=== PATIENT | female | born 1960 | race Caucasian/White ===

== ENCOUNTER 2020-07-15 06:48 | Outpatient (NON) | payer OTHER, SELFPAY ==
[2020-07-15 18:39] LABS: SARS-CoV-2 RNA PCR Negative
== END 2020-07-15 06:49 ==
PROVIDERS: PCP Family Medicine; Visit Provider Family Medicine
DX: Z20.828 Contact with and (suspected) exposure to other viral communicable diseases (principal); J06.9 Acute upper respiratory infection, unspecified; R68.89 Other general symptoms and signs
CPT/HCPCS: 87635; C9803; U0003

== ENCOUNTER 2022-12-22 09:04 | Emergency (ER) | payer BC, SELFPAY ==
[2022-12-22 09:14] VITALS: BP 159/80; PULSE 89; RESP 14; TEMP 36.8; O2SAT 98
--- NOTE | 2022-12-22 09:22 | ED.URI ---
HPI - URI/Sore Throat General Chief Complaint: Upper Respiratory Infection Stated Complaint: Facr/Throat/Ears Time Seen by Provider: 12/22/22 09:24 Source: patient, RN notes reviewed and old records reviewed Mode of arrival: ambulatory Limitations: no limitations History of Present Illness HPI Narrative: 62-year-old female presents to the [facility] with complaints of sinus congestion, bilateral ear pain and postnasal drip that started yesterday. Had taken Robitussin. Has felt feverish but did not measure her temperature. Onset (ago): day(s) (1) Related Data Allergies Allergy/AdvReac Type Severity Reaction Status Date / Time azithromycin Allergy Intermediate Unknown Verified 11/23/22 15:20 cefuroxime Allergy Intermediate Unknown Verified 11/23/22 15:20 doxycycline Allergy Intermediate Unknown Verified 11/23/22 15:20 cefixime Allergy Unknown Unknown Verified 11/23/22 15:20 erythromycin base Allergy Unknown Unknown Verified 11/23/22 15:20 levofloxacin Allergy Unknown Unknown Verified 11/23/22 15:20 sulfamethizole Allergy Unknown Unknown Verified 11/23/22 15:20 trimethoprim Allergy Unknown Unknown Verified 11/23/22 15:20 acetaminophen Allergy NAUSEATED/V Verified 11/23/22 15:20 OMITING Sulfa (Sulfonamide Allergy Unknown Verified 11/23/22 15:20 Antibiotics) sulfamethoxazole Allergy ITCHING Verified 11/23/22 15:20 tetracycline Allergy ITCHY Verified 11/23/22 15:20 clavulanic acid AdvReac Intermediate Itching Verified 11/23/22 15:20 1.SULFA 2.DARVOCET Allergy Unknown Unknown Uncoded 11/23/22 15:20 NKFA Allergy Unknown Unknown Uncoded 11/23/22 15:20 HYDROCODONE BIT Allergy NAUSEATED/V Uncoded 11/23/22 15:20 OMITING PROPOXYPHENE NAPSYLATE Allergy Unknown Uncoded 11/23/22 15:20 Review of Systems Review of Systems: All systems reviewed & are unremarkable except as noted in HPI and below Constitutional: Constitutional: Reports no additional constitutional complaints Eyes: Eyes: Reports no additional eye complaints ENT: Reports as per HPI, Reports otalgia (Bilateral), Reports nasal congestion, Reports nasal discharge and Reports sinus pressure Cardiovascular: Cardiovascular: Reports no additional cardiovascular complaints, Denies chest pain and Denies dyspnea Respiratory: Respiratory: Reports as per HPI, Denies chest congestion, Reports cough and Denies dyspnea Gastrointestinal: Gastrointestinal: Reports no additional gastrointestinal complaints, Denies abdominal pain, Denies nausea and Denies vomiting Musculoskeletal: Musculoskeletal: Reports no additional musculoskeletal complaints Integumentary/Breasts: Skin/Breast: Reports system reviewed and no additional complaints, except as docu Neurologic: Reports system reviewed and no additional complaints, except as documented Psychiatric: Psychiatric: Reports no additional psychiatric complaints Allergic/Immunologic: Allergic/Immunologic: Reports no additional allergic/immunologic complaints FOR[facility]LY [facility] Past Medical History Medical History BMI 34.0-34.9,adult BMI 35.0-35.9,adult Mixed hyperlipidemia Numbness and tingling of both upper extremities Family History Family History Mother Hypertension Family history of diabetes mellitus in first degree relative Sibling Family history of malignant neoplasm of breast in first degree relative Breast cancer Father Family history of malignant neoplasm of urinary bladder Sibling Acute myocardial infarction Social History Social History Smoking status: Current some day smoker (not considering quit) Tobacco type: cigarettes Second hand tobacco smoke exposure: No Alcohol intake: never Substance use: never Substance use type: does not use Lack of Transportation: No Lack of Food: Never True
== END 2022-12-22 09:43 | disposition home or self-care (01) ==
PROVIDERS: Emergency Provider Nurse Practitioner; PCP Family Medicine
DX: J06.9 Acute upper respiratory infection, unspecified (principal); R09.82 Postnasal drip; H65.03 Acute serous otitis media, bilateral; E78.2 Mixed hyperlipidemia; F17.210 Nicotine dependence, cigarettes, uncomplicated
CPT/HCPCS: 99211; G0463

== ENCOUNTER 2023-01-26 14:37 | Outpatient (CLI) | payer BC, SELFPAY ==
--- NOTE | ~2023-01-26 | MM_ITS ---
EXAMINATION: MM screening nubia BI w martha HISTORY: Screening mammogram TECHNIQUE: Craniocaudal and mediolateral oblique 3-D tomosynthesis images were obtained and synthetic 2-D images were generated. CAD analysis was submitted and interpreted. COMPARISON: 10/2010 bilateral screening mammogram BREAST PARENCHYMAL COMPOSITION: There are scattered areas of fibroglandular density. FINDINGS: Left breast: There is an approximately 5 x 7.8 mm circumscribed opacity with halo sign in the very po sterior upper outer quadrant not far from mid sagittal plane. This has a couple of superficial benign -appearing calcifications. The mammographic features suggest benign process, very possibly a benign f ibroadenoma. There is some asymmetric density in the posterior mid to upper outer left breast which was present on 10/05/2010. However there are some microcalcifications in this area that were not present on 10/05/2010. There appe ars to be some fat density associated with these calcifications suggesting these may be calcification s of fat necrosis, but left diagnostic mammography with magnification views would be helpful for more definitive evaluation, with ultrasound if required. Right breast: No suspicious mass, architectural distortion, malignant calcification, skin thickening or retraction of the right breast is detected. Occasional benign calcifications. IMPRESSION: 1. New indeterminate microcalcifications in the posterior mid upper outer left breast 2. Diagnostic left mammogram with magnification views is recommended, with ultrasound if required BI-RADS Category 0: Incomplete: Needs additional imaging evaluation. Reviewed, dictated and finalized at location A. IMPRESSION: 1. New indeterminate microcalcifications in the posterior mid upper outer left breast 2. Diagnostic left mammogram with magnification views is recommended, with ultr asound if required BI-RADS Category 0: Incomplete: Needs additional imaging evaluation.
== END 2023-01-26 14:38 | disposition home or self-care (01) ==
LOC: ANHIMG 14:39
PROVIDERS: PCP Family Medicine; Visit Provider Nurse Practitioner Family
DX: Z12.31 Encounter for screening mammogram for malignant neoplasm of breast (principal); R92.0 Mammographic microcalcification found on diagnostic imaging of breast
CPT/HCPCS: 77063; 77067

== ENCOUNTER 2023-02-22 11:16 | Outpatient (CLI) | payer BC, SELFPAY ==
--- NOTE | ~2023-02-22 | MMUS_ITS ---
EXAMINATION: MM diagnostic mammo unilat LT, US breast LT limited HISTORY: Left breast calcifications on screening mammogram TECHNIQUE: Additional views of the left breast were performed. CAD analysis was submitted and interpr eted. High resolution limited left breast ultrasound was performed. COMPARISON: 01/26/2023, 10/05/2010 FINDINGS: MAMMOGRAPHIC FINDINGS: There are grouped, coarse heterogeneous calcifications in the posterior third of the outer breast at the 3:00 location 8 cm from the nipple. There is an 8 mm oval, circumscribed, equal density mass in t he posterior third of the upper breast at the 12:00 location 7.5 cm from the nipple. ULTRASOUND: There is a 7 mm cyst at the 1:00 location, 1 cm from the nipple corresponding to the mammographic mas s. IMPRESSION: 1. Indeterminate left breast calcifications. 2. Stereotactic left breast biopsy is recommended. BI-RADS category 4, suspicious findings. Reviewed, dictated and finalized at location A. IMPRESSION: 1. Indeterminate left breast calcifications. 2. Stereotactic left breast biopsy is recommended. BI-RADS category 4, suspicious findings.
== END 2023-02-22 11:17 | disposition home or self-care (01) ==
LOC: ANHIMG 11:16
PROVIDERS: PCP Family Medicine; Visit Provider Nurse Practitioner Family
DX: R92.8 Other abnormal and inconclusive findings on diagnostic imaging of breast (principal)
CPT/HCPCS: 76642; 77065

== ENCOUNTER 2024-08-02 08:02 | Outpatient (CLI) | payer BC, SELFPAY ==
--- NOTE | ~2024-08-02 | XR_ITS ---
EXAMINATION: XR abdomen/kub 1V DATE: 08/02/2024 08:26 INDICATION: Other microscopic hematuria. TECHNIQUE: A supine view of the abdomen on 2 radiographs was obtained. COMPARISON: CT abdomen and pelvis 08/02/2024 FINDINGS: There are no dilated loops of bowel. Surgical clips in the right upper quadrant are likely from cholecystectomy. There are phleboliths in the pelvis. IMPRESSION: 1. No urolithiasis. Reviewed, dictated and finalized at location B. IMPRESSION: 1. No urolithiasis.
--- NOTE | ~2024-08-02 | CT_ITS ---
EXAMINATION: CT abdomen pelvis wo/w con DATE: 08/02/2024 08:46 INDICATION: Microscopic hematuria TECHNIQUE: Computed tomography (CT) of the abdomen and pelvis was performed without intravenous contr ast. CT of the abdomen and pelvis was then performed with a total of 130 mL Omnipaque-350 intravenous contrast using a double-bolus technique for simultaneous opacification of the renal parenchyma and r enal collecting system. Automated exposure control and iterative reconstruction technique were employ ed. The dose-length product was 2295.79 mGy-cm. COMPARISON: None FINDINGS: Calcified left lower lobe nodule, calcified left hilar lymph nodes and couple small splenic calcifica tions, all consistent with old granulomatous disease. Heart size is normal. No pericardial or pleural effusion. Moderate-sized sliding-type hiatal hernia. Cholecystectomy clips the gallbladder fossa. Li galdino, pancreas and bilateral adrenal glands are normal. Low-attenuation nonenhancing renal cysts measu ring 1.5 cm the right kidney and 5 mm at the left kidney. There are small regions of cortical scarrin g at the right kidney likely sequela prior infection or infarction. There is calcified atherosclerosi s of the aorta and many of the other arteries with suggestion of potentially minimally significant st enosis at the origin of the right renal artery. No urolithiasis. The mid to distal right and distal l eft ureters are decompressed with nearly indiscernible contrast. No hydronephrosis. No urothelial irr egularities identified at the bilateral renal collecting systems or more clearly contrast opacified p ortions of the ureters. Bladder is normal. No bowel obstruction. There are few scattered diverticula predominantly along the sigmoid colon without adjacent from trace stranding to suggest diverticulitis . No free intraperitoneal gas or fluid. No pathologically enlarged abdominal or pelvic lymphadenopath y. Moderate to severe lumbar spondylosis. IMPRESSION: 1. No urolithiasis, suspicious renal masses or urothelial irregularities to suggest etiology for repo rted microscopic hematuria. 2. Scattered cortical scarring at the right kidney which could represent sequela of prior infection o r infarction. There does appear to be potentially minimally significant stenosis at the origin of the right renal artery. 3. Moderate-sized sliding-type hiatal hernia. Reviewed, dictated and finalized at location A. IMPRESSION: 1. No urolithiasis, suspicious renal masses or urothelial irregularities to sug gest etiology for reported microscopic hematuria. 2. Scattered cortical scarring at the right kidney which could represent sequel a of prior infection or infarction. There does appear to be potentially minimal ly significant stenosis at the origin of the right renal artery. 3. Moderate-sized sliding-type hiatal hernia.
[2024-08-02 08:25] LABS: Estimated Glomerular Filt Rate 50
== END 2024-08-02 08:03 | disposition home or self-care (01) ==
PROVIDERS: PCP Family Medicine; Visit Provider Family Medicine
DX: R31.29 Other microscopic hematuria (principal); Z80.52 Family history of malignant neoplasm of bladder; K44.9 Diaphragmatic hernia without obstruction or gangrene
CPT/HCPCS: 74018; 74178; Q9967

== ENCOUNTER 2024-10-25 01:50 | Day surgery (SDC) | payer BC, SELFPAY ==
[2024-10-14 13:43] VITALS: BMI 37.5
[2024-10-25 06:22] VITALS: BP 127/72; PULSE 80; RESP 20; TEMP 36.1; O2SAT 98
[2024-10-25] MEDS: LACTATED RINGERS 1,000 ML 150 ML IV CONT (06:33)
--- NOTE | 2024-10-25 06:53 | WPDANESEPPF ---
Anes - Initial Pre Proc Eval Procedure: Operation Date: 10/25/24 07:30 Proposed Procedures p Screening Colonoscopy - Ralph Gonzalez MD Date/Time: 10/25/24 06:53 Surgeon: Ralph Gonzalez MD Pre Op Diagnosis: screening colon Patient Data Age: 64 Gender: F Height: 1.55 m Weight: 85.2 kg Last Vital Signs Temp 85.2 F L 10/25/24 06:22 Pulse 80 10/25/24 06:22 Resp 20 10/25/24 06:22 BP 127/72 10/25/24 06:22 Pulse Ox 98 10/25/24 06:22 O2 Del Method Room Air 10/25/24 06:22 Allergies Allergy/AdvReac Type Severity Reaction Status Date / Time azithromycin Allergy Intermediate Unknown Verified 10/25/24 06:20 cefuroxime Allergy Intermediate Unknown Verified 10/25/24 06:20 doxycycline Allergy Intermediate Unknown Verified 10/25/24 06:20 propoxyphene Allergy Mild Unknown Verified 10/25/24 06:20 cefixime Allergy Unknown Unknown Verified 10/25/24 06:20 erythromycin base Allergy Unknown Unknown Verified 10/25/24 06:20 levofloxacin Allergy Unknown Unknown Verified 10/25/24 06:20 trimethoprim Allergy Unknown Unknown Verified 10/25/24 06:20 Sulfa (Sulfonamide Allergy Unknown Verified 10/25/24 06:20 Antibiotics) tetracycline Allergy ITCHY Verified 10/25/24 06:20 clavulanic acid AdvReac Intermediate Itching Verified 10/25/24 06:20 hydrocodone (From Lorcet AdvReac Mild Nausea and Verified 10/25/24 06:20 (hydrocodone)) Vomiting Home Medications ?Medication ?Instructions ?Recorded ?Confirmed ?Type triamcinolone acetonide 0.1 % 1 applic topical BID #30 grams 06/17/24 10/14/24 Rx topical ointment semaglutide (weight loss) 0.25 0.25 mg (0.5 mL) subcut WEEKLY #2 08/20/24 10/14/24 Rx mg/0.5 mL subcutaneous pen mL injector (Wegovy) cyclobenzaprine 5 mg tablet 5 mg PO Q12H PRN muscle pain 10/14/24 10/14/24 History Patient hx anesthesia problems: none Family hx anesthesia problems: none Results Review: All pre-operative results and documents have been reviewed as part of the pre-operative evaluation. REPLACED BY [facility] Past Medical History Medical History Pre-diabetes Pelvic pain Urinary urgency Hemorrhoids Flank pain Family history of bladder cancer Microhematuria Screening for colon cancer Skin tag Screening for thyroid disorder Encounter for wellness examination Obesity (BMI 30.0-34.9) BMI 36.0-36.9,adult BMI 35.0-35.9,adult Boil BMI 34.0-34.9,adult Mixed hyperlipidemia Numbness and tingling of both upper extremities Family History Family History Mother Hypertension Family history of diabetes mellitus in first degree relative Sibling Family history of malignant neoplasm of breast in first degree relative Breast cancer Father Family history of malignant neoplasm of urinary bladder Sibling Acute myocardial infarction Social History Social History Smoking packs per day: 0.5 Smoking cigarettes per day: 10.0 Years smoked: 50 Smoking pack-years: 25.00 Smoking status: Current every day smoker Tobacco type: cigarettes Second hand tobacco smoke exposure: No Alcohol intake: never Substance use: never Substance use type: does not use Do You Feel Safe in your Home?: Yes Lack of Transportation: No Lack of Food: Never True Current Housing: I Have Housing Concerned About Future Housing: No Difficulty Paying Gas/Electric Bills: No Difficulty Paying for Meds: No Currently Unemployed: No Education: High School Diploma/GED Difficulty w/ Childcare or Family Care: No Living arrangements: alone 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 ) Neurological: alert and oriented Last oral intake: >/= 8 hours ASA classification: III Emergent: no Anesthetic plan: proceed Anesthesia type and monitoring: general GIVS and standard monitoring Results Review: All pre-operative results and documents have been reviewed as part of the pre-operative evaluation. Smoker, 1 ppd, obesity, borderline DM/hyperlipidemia, no meds. Informed Consent: The patient's anesthetic plan and its attendant risks and benefits were discussed with the patient/family/POA. Questions were solicited and answers provided to the satisfaction of the patient/family/POA.
--- NOTE | 2024-10-25 07:18 | PM.IMHP ---
H&P: HPI History of Present Illness Date/Time: 10/25/24 07:18 Chief Complaint: Screening colonoscopy Narrative: This is the patient's first colonoscopy. There are no GI symptoms and there is no family history of colorectal cancer. Review of Systems Review of Systems: All systems reviewed & are unremarkable except as noted in HPI and below PMFSH Past Medical History Medical History Pre-diabetes Pelvic pain Urinary urgency Hemorrhoids Flank pain Family history of bladder cancer Microhematuria Screening for colon cancer Skin tag Screening for thyroid disorder Encounter for wellness examination Obesity (BMI 30.0-34.9) BMI 36.0-36.9,adult BMI 35.0-35.9,adult Boil BMI 34.0-34.9,adult Mixed hyperlipidemia Numbness and tingling of both upper extremities Family History Family History Mother Hypertension Family history of diabetes mellitus in first degree relative Sibling Family history of malignant neoplasm of breast in first degree relative Breast cancer Father Family history of malignant neoplasm of urinary bladder Sibling Acute myocardial infarction Social History Social History Smoking packs per day: 0.5 Smoking cigarettes per day: 10.0 Years smoked: 50 Smoking pack-years: 25.00 Smoking status: Current every day smoker Tobacco type: cigarettes Second hand tobacco smoke exposure: No Alcohol intake: never Substance use: never Substance use type: does not use Do You Feel Safe in your Home?: Yes Lack of Transportation: No Lack of Food: Never True Current Housing: I Have Housing Concerned About Future Housing: No Difficulty Paying Gas/Electric Bills: No Difficulty Paying for Meds: No Currently Unemployed: No Education: High School Diploma/GED Difficulty w/ Childcare or Family Care: No Living arrangements: alone 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 Gender identity (if verbalized by the patient): Female Spiritual care concerns: No Meds Home Medications and Allergies Home Medications ?Medication ?Instructions ?Recorded ?Confirmed ?Type triamcinolone acetonide 0.1 % 1 applic topical BID #30 grams 09/16/24 01/13/25 Rx topical ointment semaglutide (weight loss) 0.25 0.25 mg (0.5 mL) subcut WEEKLY #2 08/20/24 10/14/24 Rx mg/0.5 mL subcutaneous pen mL injector (Joselo) cyclobenzaprine 5 mg tablet 5 mg PO Q12H PRN muscle pain 10/14/24 10/14/24 History Allergies Allergy/AdvReac Type Severity Reaction Status Date / Time azithromycin Allergy Intermediate Unknown Verified 10/25/24 06:20 cefuroxime Allergy Intermediate Unknown Verified 10/25/24 06:20 doxycycline Allergy Intermediate Unknown Verified 10/25/24 06:20 propoxyphene Allergy Mild Unknown Verified 10/25/24 06:20 cefixime Allergy Unknown Unknown Verified 10/25/24 06:20 erythromycin base Allergy Unknown Unknown Verified 10/25/24 06:20 levofloxacin Allergy Unknown Unknown Verified 10/25/24 06:20 trimethoprim Allergy Unknown Unknown Verified 10/25/24 06:20 Sulfa (Sulfonamide Allergy Unknown Verified 10/25/24 06:20 Antibiotics) tetracycline Allergy ITCHY Verified 10/25/24 06:20 clavulanic acid AdvReac Intermediate Itching Verified 10/25/24 06:20 hydrocodone (From Lorcet AdvReac Mild Nausea and Verified 10/25/24 06:20 (hydrocodone)) Vomiting Vital Signs Vital Signs - 24 hr 10/25/24 06:22 Temperature 85.2 F L Pulse Rate 80 Respiratory Rate 20 Blood Pressure 127/72 Pulse Oximetry 98 Oxygen Delivery Room Air Exam Const: General: cooperative and healthy appearing Resp: Effort & Inspection: normal respiratory effort and able to speak in complete sentences Auscultation: clear to auscultation bilaterally Cardio: Rate: regular rate Rhythm: regular rhythm GI: Inspection: normal to inspection GI Palp: No No hepatosplenomegaly present Auscultation: normal bowel sounds Rectal Exam: deferred Skin: General skin exam: normal color Psych: Appearance: grossly normal Mental Status: mental status grossly normal Assessment and Plan Assessment and plan (1) Screening for colon cancer: Code(s): Z12.11 - Encounter for screening for malignant neoplasm of colon Status: Acute Assessment and Plan: The patient is deemed a good candidate for the procedure. Consent signed. Will proceed.
--- NOTE | 2024-10-25 07:40 | SUR.OPER ---
At 0738, Dr. Gonzalez switched from a colonoscopy scope to a EGD scope due to difficulty advancing scope.
[2024-10-25 07:52] VITALS: BP 108/67; PULSE 73; RESP 18; O2SAT 98
[2024-10-25 08:02] VITALS: BP 128/70; PULSE 65; RESP 18; O2SAT 100
[2024-10-25 08:12] VITALS: BP 128/72; PULSE 60; RESP 22; O2SAT 100
== END 2024-10-25 08:20 | disposition home or self-care (01) ==
PROVIDERS: PCP Family Medicine; Referring Provider Nurse Practitioner Adult Health; Visit Provider Internal Medicine Gastroenterology
PROC: 0DJD8ZZ Inspection of Lower Intestinal Tract, Via Natural or Artificial Opening Endoscopic (ICD-10-PCS; CPT 45378; principal; 2024-10-25 07:30)
DX: Z12.11 Encounter for screening for malignant neoplasm of colon (principal); K57.30 Diverticulosis of large intestine without perforation or abscess without bleeding; E78.2 Mixed hyperlipidemia; R73.03 Prediabetes; R39.15 Urgency of urination; F17.210 Nicotine dependence, cigarettes, uncomplicated; E66.9 Obesity, unspecified; Z68.35 Body mass index [BMI] 35.0-35.9, adult; Z79.85 Long-term (current) use of injectable non-insulin antidiabetic drugs; Z80.52 Family history of malignant neoplasm of bladder; Z80.3 Family history of malignant neoplasm of breast; Z82.49 Family history of ischemic heart disease and other diseases of the circulatory system
CPT/HCPCS: 45330; J2003; J2704; J7120

== ENCOUNTER 2025-08-27 14:35 | Outpatient (CLI) | payer OTHER, SELFPAY ==
--- NOTE | ~2025-08-27 | MR_ITS ---
EXAMINATION: MR lumbar spine wo carlos, 08/27/2025 14:54 DIRECTOR OF DANCE HISTORY: low back pain COMPARISON: None TECHNIQUE: Multi-planar multi-sequence images were obtained of the lumbar spine without contrast per protocol. FINDINGS: Moderate loss of vertebral height throughout. No fracture or subluxation. Marrow signal is appropriate. Posterior alignment is intact. There is no abnormal signal within the posterior elements The conus terminates at T12-L1. There is no abnormal signal within the cord Moderate loss of disc height at L2-3 L3-4 L4-5 and L5-S1 with disc desiccation and endplate degenerative changes most marked at L2-3. The soft tissues are unremarkable L5-S1: Circumferential bulging of the disc with ligamentum flavum and facet hypertrophy. Mild bilateral foramina and lateral recess stenosis, no canal stenosis. L4-5: Circumferential bulging of the disc asymmetrically to the left with ligamentum flavum and facet hypertrophy. Moderate left foramina stenosis. No lateral recess or canal stenosis. L3-4: Circumferential bulging of the disc with ligamentum flavum and facet hypertrophy. Moderate bilateral foramina and mild lateral recess stenosis, no canal stenosis. L2-L3: Circumferential bulging of the disc with ligamentum flavum and facet hypertrophy. Moderate to severe bilateral foramina stenosis. No lateral recess or canal stenosis. L1-L2: No canal or foraminal stenosis IMPRESSION: Degenerative changes detailed above Reviewed, dictated and finalized at location P. [employer]
--- OUTSIDE RECORDS SUMMARY | 2025-08-27 14:42 | XMS_ITS | Clinical Summary ---
Author Organization [employer] [facility] Address [address] [place] [address] Care Team Providers Care Clinical Research Manager Name Role Phone Ralph Gonzalez MD Unavailable Unavailabl e Source Comments [facility],non-owned Affiliates and Associated Physician Practices is amultiple site organization consisting of ambulatory clinics and hospital sitesin [place], [place] and [place]. This disclosure is being madepursuant to the Care Everywhere program and may not contain all information available regarding this patient. Last updated 18.[employer] Allergies No known active allergies Medications * Be aware that medications may not be up to date on this document. Alwaysverify current medications with the patient. No known medications Social History Tobacco Use Types Packs/Day Years Used Date Smoking Tobacco: Never Smokeless Tobacco: Never Tobacco Cessation:Counseling Given: Not Answered Alcohol Use Standard Drinks/Week Comments Not Currently 0 (1 standard drink = 0.6 oz pur e alcohol) Comments No Sex and Gender Information Value Date Recorded Sex Assigned at Not on file Legal Sex Female 9:56 AM CDT Gender Identity Not on file Sexual Orientation Not on file Last Filed Vital Signs Vital Sign Reading Time Taken Comments Blood Pressure 110/80 01/17/2025 10:00 AM CDT Pulse 65 01/17/2025 10:00 AM CDT Temperature 35.9 C (96.7 F) 01/17/2025 9:31 AM CDT Respiratory Rate 19 01/17/2025 10:0 0 AM CDT Oxygen Saturation 92% 01/17/2025 10: 00 AM CDT Inhaled Oxygen Concentration - - Weight 87.9 kg (193 lb 12.8 oz) 01/17/2025 7:16 AM CDT Height 154.9 cm (5' 1) 01/17/2025 7:16 AM CDT Body Mass Index 36.62 01/17/2025 7:16 AM CDT Plan of Treatment Health Maintenance Due Date Last Done Comments BONE DENSITY TESTING 1960 COLOGUARD (AGES 45-75) - COL ON CA SCREENING 1960 CT COLONOGRAPHY - COLON CA SCREENING 1960 FIT - COLON CA SCREENING 1960 FLEX SIG - COLON CA SCREENING 1960 LIPID TESTING 1960 MAMMOGRAM 1960 HIV SCREENING 1975 HEPATITIS C SCREENING 04/29/1978 DTAP/TDAP/TD VACCINES (1 - Tdap) 1979 Cervical Cancer Screening 1981 PAP SMEAR 1981 PAP with HPV 1990 PNEUMOCOCCAL VACCINE 50+ (1 of 1 - PCV) 2010 ZOSTER VACCINE (1 of 2) 2010 DEPRESSION SCREENING 10/02/2024 COVID-19 VACCINE (1 - 2024-2 6 season) 2025 INFLUENZA VACCINE (#1) 2025 COLON MONITORING 01/17/2035 01/17/2025, 01/17/2025 COLONOSCOPY - COLON CA SCREENING 01/17/2035 01/17/2025, 01/17/2025 Colorectal Cancer Screening 01/17/2035 Respiratory Syncytial Virus (RSV) Vaccine Pt: or over 60 yrs (1 - 1-dose 75+ series) 2035 HEPATITIS B VACCINE Aged Out No longe r eligible based on patient's age to complete this topic HIB VACCINE Aged Out No longer eligi ble based on patient's age to complete this topic HPV VACCINE Aged Out No longer eligi ble based on patient's age to complete this topic MENINGOCOCCAL (Group B) VACCINE SHARED DECISION-MAKING Aged Out No longer eligible based on patient's age to complete this topic MENINGOCOCCAL GROUPS A/C/Y/W VACCINE Aged Out No longer eligible b ased on patient's age to complete this topic Procedures Procedure Name Priority Date/Time Associated Diagnosis Comments ENDOSCOPY, COLON, DIAGNOSTIC Routine 01/17/2025 7:14 AM CDT from Last 3 Months or Most Recently Relevant to Health Maintenance Results * ENDOSCOPY, COLON, DIAGNOSTIC (01/17/2025 7:14 AM CDT) Report Endoscopy POC Endoscopy Department Report _ Patient Name: Jayne Head Procedure Date: 01/17/2025 7:14 AM Date of : 1960 Classification: Outpatient Gender: Female Ethnicity: Not or Race: White _ Providers: Alex Madrid MD, Clint Higginbotham (Fellow) Referring MD: Procedure: Colonoscopy Indications: Screening for colorectal malignant neoplasm Medications: Monitored Anesthesia Care Patient Profile: This is a 64 year old female. Failed colonoscopy as outpatient due to severe angulation in the sigmoid colon. Description of Procedure: After I obtained informed consent, the scope was passed under direct vision. Throughout the procedure, the patient's blood pressure, pulse, and oxygen saturations were monitored continuously. The Colonoscope was introduced through the anus and advanced to the cecum, identified by appendiceal orifice and ileocecal valve. The colonoscopy was performed without difficulty. The patient tolerated the procedure well. Scope insertion time was 40 minutes. Scope withdrawal time was 30 minutes. The quality of the bowel preparation was evaluated using the BBPS ([place] Bowel Preparation Scale) with scores of: Right Colon = 2 (minor amount of residual staining, small fragments of stool and/or opaque liquid, but mucosa seen well), Transverse Colon = 2 (minor amount of residual staining, small fragments of stool and/or opaque liquid, but mucosa seen well) and Left Colon = 2 (minor amount of residual staining, small fragments of stool and/or opaque liquid, but mucosa seen well). The total BBPS score equals 6. The PCF-H190DL was introduced through the anus. The Endoscope was introduced through the anus. The SIF-Q180 was introduced through the anus. Findings: The perianal and digital rectal examinations were normal. As expected, there was a marked angulation in the distal sigmoid starting at about 20 cm. This was carefully negotiated with adult and pediatric colonoscope without success. A gastroscope traversed it, however would only reach the proximal asending. A guidewire was left and an enteroscope was advanced next to the wire. Extensive washing was required. The procedure quality was limited by the length, limited manueverability, and small channel of the enteroscope. A 6 mm polyp was found in the ascending colon. The polyp was sessile. The polyp was removed with a cold snare. Resection was complete, but the polyp tissue was not retrieved. An 8 mm polyp was found in the descending colon. The polyp was sessile. The polyp was removed with a cold snare. Resection and retrieval were complete. A 10 mm polyp was found in the recto-sigmoid colon. The polyp was flat. The polyp was removed with a cold snare. Resection and retrieval were complete. Multiple small and large-mouthed diverticula were found in the sigmoid colon and descending colon. Estimated Blood Loss: Estimated blood loss was minimal. Complications: No immediate complications. Impression: - Very difficult colonoscopy due to severe angulation due to severe diverticulosis of the sigmoid colon. See findings for details. - One 6 mm polyp in the ascending colon, removed with a cold snare. Complete resection. Polyp tissue not retrieved. - One 8 mm polyp in the descending colon, removed with a cold snare. Resected and retrieved. - One 10 mm polyp at the recto-sigmoid colon, removed with a cold snare. Resected and retrieved. - Diverticulosis in the sigmoid colon and in the descending colon. - Extensive washing was required. The procedure quality was limited by the length, limited manueverability, and small channel of the enteroscope. Recommendation: - Patient has a contact number available for emergencies. The signs and symptoms of potential delayed complications were discussed with the patient. Return to normal activities tomorrow. Written discharge instructions were provided to the patient. - High fiber diet. - Repeat colonoscopy in 3 years for surveillance by advanced endoscopy. - Await pathology results. Attending Participation: I was present and participated during the entire procedure, including non-whittaker portions. Procedure Code(s): --- Professional --- 03778, Colonoscopy, flexible; with removal of tumor(s), polyp(s), or other lesion(s) by snare technique Diagnosis Code(s): --- Professional --- Z12.11, Encounter for screening for malignant neoplasm of colon K56.699, Other intestinal obstruction unspecified as to partial versus complete obstruction D12.2, Benign neoplasm of ascending colon D12.4, Benign neoplasm of descending colon D12.7, Benign neoplasm of rectosigmoid junction K57.30, Diverticulosis of large intestine without perforation or abscess without bleeding CPT copyright 2021 [employer]. All rights reserved. The codes documented in this report are preliminary and upon manager software development review may be revised to meet current compliance requirements. Alex Madrid MD 01/17/2025 9:36:34 AM This report has been signed electronically. Note Initiated On: 01/17/2025 7:14 AM Number of Addenda: [id number] [place] [address] PROVATION 01/17/2025 7:14 AM CDT Alex Madrid MD GI PROCEDURE ORDERABLES Edited R esult - Final [facility] PROVATION from Last 3 Months or Most Recently Relevant to Health Maintenance Insurance [employer] Care Teams Clinical Research Manager Relationship Specialty [place] [id number] [address] Referring Physician 10/28/24
== END 2025-08-27 14:36 | disposition home or self-care (01) ==
PROVIDERS: PCP Family Medicine
DX: M51.369 Other intervertebral disc degeneration, lumbar region without mention of lumbar back pain or lower extremity pain (principal)
CPT/HCPCS: 72148